=== PATIENT | female | born 1955 | race African-American/Black ===

== ENCOUNTER 2017-04-26 14:06 | Inpatient (IN) | payer MEDICARE, OTHER ==
[~2017-04-26] VITALS: Ht 167.6 cm; Wt 111.0 kg
[2017-04-26 15:22] LABS: Basophils # (auto) 0.1 uL; Eosinophils # (auto) 0.1 uL; Mean Corpuscular Volume 83.2 fL (80.0-100.0); Monocytes # (auto) 0.7 uL
[2017-04-26 15:24] LABS: Basophils % (auto) 0.9 % (0.0-2.0); Eosinophils % (auto) 0.7 % (0.0-7.0); Lymphocytes # (auto) 2.7 uL; Lymphocytes % (auto) 30.5 % (10.0-50.0); Mean Corpuscular Hemoglobin 26.9 pg (28.0-32.0); Mean Corpuscular Hgb Conc. 32.3 g/dL (32.0-36.0); Mean Platelet Volume 8.4 fL (6.9-10.8); Monocytes % (auto) 7.4 % (0.0-12.0); Neutrophils # (auto) 5.4 uL; Neutrophils % (auto) 60.5 % (37.0-80.0); Nucleated Red Blood Cells % 0.1 %; Platelet Count (auto) 241 10^3/uL (140-450); Red Cell Distribution Width 16.2 % (11.8-14.3); White Blood Cell 8.8 10^3/uL (4.4-10.8)
[2017-04-26 17:27] LABS: BUN/Creatinine Ratio 24.2; Calcium 8.3 mg/dL (8.5-10.1); Magnesium 1.8 mg/dL (1.6-2.6)
[2017-04-26 17:32] LABS: Bilirubin, Total 0.1 mg/dL (0.2-1.0); Total Protein 6.8 g/dL (6.4-8.2)
[2017-04-26 17:45] LABS: INR 0.97 (0.9-1.15); Partial Thromboplastin Time 24.8 sec (22.64-33.71); Prothrombin Time 10.6 sec (9.37-12.3)
[2017-04-26 17:48] LABS: Temperature: 21.3 C (20.0-25.0)
[2017-04-26] MEDS ORDERED: MORPHINE SULF INJ 2 MG/ML SYRINGE 1ML IV PRN (20:45)
[2017-04-26] MEDS ORDERED: NITROGLYCERIN 0.4 MG SL TAB SL PRN (20:45)
[2017-04-26] MEDS ORDERED: ENOXAPARIN SOD 100 MG/1 ML SYRINGE SC ONE (21:15)
[2017-04-26] MEDS: METOPROLOL TARTRATE 25 MG TAB PO SCH (21:22)
[2017-04-26] MEDS: ATORVASTATIN 20 MG TAB PO SCH (21:22)
[2017-04-26 21:29] LABS: Cholesterol 154 mg/dL (< 200); HDL Cholesterol 58 mg/dL (40-59); LDL Cholesterol 78 mg/dL (< 100); Triglycerides 242 mg/dL (< 150)
[2017-04-26] MEDS ORDERED: DEXTROSE (50%) 50ML SYRG IV PRN (22:15)
[2017-04-26] MEDS ORDERED: AML5T PO (23:44)
[2017-04-26] MEDS ORDERED: GLIP-115 PO (23:44)
[2017-04-26] MEDS ORDERED: METF-370 PO (23:44)
[2017-04-26] MEDS ORDERED: MAGN400T5 PO (23:44)
[2017-04-26] MEDS ORDERED: LOSA25TA8 PO (23:44)
[2017-04-27 04:58] VITALS: BP 140/70
[2017-04-27 05:42] LABS: Basophils # (auto) 0.1 uL; Eosinophils # (auto) 0.2 uL; Hemoglobin 11.1 g/dL (12.2-16.2); Lymphocytes # (auto) 3.3 uL; Monocytes # (auto) 0.6 uL
[2017-04-27 05:48] LABS: Basophils % (auto) 0.6 % (0.0-2.0); Eosinophils % (auto) 2.3 % (0.0-7.0); Lymphocytes % (auto) 40.2 % (10.0-50.0); Mean Corpuscular Hemoglobin 27.1 pg (28.0-32.0); Mean Corpuscular Hgb Conc. 32.8 g/dL (32.0-36.0); Mean Corpuscular Volume 82.6 fL (80.0-100.0); Mean Platelet Volume 8.5 fL (6.9-10.8); Monocytes % (auto) 7.8 % (0.0-12.0); Neutrophils % (auto) 49.1 % (37.0-80.0); Nucleated Red Blood Cells % 0.2 %; Platelet Count (auto) 223 10^3/uL (140-450); Red Cell Distribution Width 15.9 % (11.8-14.3); White Blood Cell 8.2 10^3/uL (4.4-10.8)
[2017-04-27 05:56] LABS: BUN/Creatinine Ratio 27.6; Calcium 8.4 mg/dL (8.5-10.1); Potassium 3.4 mmol/L (3.5-5.1)
[2017-04-27] MEDS: ACCU-CHEK COMFORT CURVE STRIP VI SCH ×4 (06:19→22:11)
[2017-04-27] MEDS: InsuLIN REG 1unit/0.01ml Soln (100units/ml) SC SCH ×4 (06:22→22:14)
[2017-04-27] MEDS: glipiZIDE 5 MG TAB PO SCH (06:22)
[2017-04-27 07:10] LABS: Urine Bilirubin Negative (Negative); Urine Blood Negative /uL (Negative); Urine Color Yellow (Yellow); Urine Glucose 4+ mg/dL (Normal); Urine Ketone Negative (Negative); Urine Nitrite Negative (Negative); Urine RBC <1 /hpf (0 - 4); Urine Urobilinogen Normal (Negative)
[2017-04-27 09:00] VITALS: BP 144/84
[2017-04-27] MEDS: ASPirin 81 mg TAB PO SCH (10:00)
[2017-04-27] MEDS ORDERED: LIDOCAINE 2%HCL (LOCAL ANESTH.) INJ 20ML MDV ONE (10:31)
[2017-04-27] MEDS ORDERED: IODIXANOL 320MG/ML 100ML BTL IV ONE (10:33)
[2017-04-27] MEDS ORDERED: MIDAZOLAM HCL 1MG/1ML-2 ML VIAL ONE (12:50)
[2017-04-27] MEDS ORDERED: fentaNYL CITRATE 100 MCG/2 ML VL ONE (12:50)
[2017-04-27] MEDS ORDERED: ANGIOMAX 250 MG VIAL IV ONE (12:50)
[2017-04-27] MEDS ORDERED: SODIUM CHL 0.9% 0 ML ONE (12:50)
[2017-04-27 13:00] VITALS: BP 157/97
[2017-04-27] MEDS ORDERED: hydrALAZINE HCL 20 MG/ML VL ONE (13:17)
[2017-04-27] MEDS ORDERED: SODIUM CHLORIDE 0.9% 1,000 ML IV SCH (13:50)
[2017-04-27] MEDS ORDERED: ALBUTEROL SULF 2.5 MG/0.5ML(0.5%) NEB SOLN NEB PRN (14:45)
[2017-04-27] MEDS ORDERED: IPRATROPIUM BROM 0.5 MG/2.5ML INH SOL NEB ONE (14:45)
[2017-04-27] MEDS ORDERED: amLODIPine BESYLATE 5 MG TAB PO ONE (14:45)
[2017-04-27] MEDS ORDERED: ALBUTEROL SULF 2.5 MG/0.5ML(0.5%) NEB SOLN NEB ONE (14:45)
[2017-04-27] MEDS: METOPROLOL TARTRATE 25 MG TAB PO SCH ×2 (15:43→22:11)
[2017-04-27 17:00] VITALS: BP 122/67
[2017-04-27 21:00] VITALS: BP 146/73
[2017-04-27] MEDS: ATORVASTATIN 20 MG TAB PO SCH (22:10)
[2017-04-28] MEDS: IPRATROPIUM BROM 0.5 MG/2.5ML INH SOL NEB SCH ×3 (00:16→11:22)
[2017-04-28] MEDS: PANTOPRAZOLE 40 MG/10 ML VIAL IV ONE ×2 (04:27→04:33)
[2017-04-28 05:00] VITALS: BP 146/87
[2017-04-28] MEDS: ACCU-CHEK COMFORT CURVE STRIP VI SCH ×2 (06:14→11:57)
[2017-04-28] MEDS: InsuLIN REG 1unit/0.01ml Soln (100units/ml) SC SCH ×2 (06:18→11:57)
[2017-04-28] MEDS: glipiZIDE 5 MG TAB PO SCH (06:18)
[2017-04-28 07:59] VITALS: BP 141/77
[2017-04-28] MEDS ORDERED: amLODIPine BESYLATE 5 MG TAB PO SCH (10:00)
[2017-04-28] MEDS: ASPirin 81 mg TAB PO SCH (10:58)
[2017-04-28] MEDS: METOPROLOL TARTRATE 25 MG TAB PO SCH (10:58)
[2017-04-28 11:37] VITALS: BP 140/73
[2017-04-28 15:56] VITALS: BP 140/73
[2017-04-28 16:05] VITALS: BP 140/73
[2017-04-28 16:39] VITALS: BP 141/68
[2017-04-29] MEDS ORDERED: PANTOPRAZOLE 40 MG TAB PO SCH (10:00)
== END 2017-04-28 17:45 | disposition home or self-care (01) | DRG 281 ==
LOC: ER 14:06 → EDBD 14:06 → TELE 14:07 → TELE-CENTR 22:50
PROVIDERS: ADMIT Nurse Practitioner Family; ATTEND Internal Medicine Pulmonary Disease
PROC: 4A023N7 Measurement of Cardiac Sampling and Pressure, Left Heart, Percutaneous Approach (ICD-10-PCS; principal; 2017-04-27)
PROC: B2111ZZ Fluoroscopy of Multiple Coronary Arteries using Low Osmolar Contrast (ICD-10-PCS; 2017-04-27)
DX: I21.4 Non-ST elevation (NSTEMI) myocardial infarction (principal); I13.0 Hypertensive heart and chronic kidney disease with heart failure and stage 1 through stage 4 chronic kidney disease, or unspecified chronic kidney disease; E11.22 Type 2 diabetes mellitus with diabetic chronic kidney disease; E11.65 Type 2 diabetes mellitus with hyperglycemia; E44.0 Moderate protein-calorie malnutrition; I50.42 Chronic combined systolic (congestive) and diastolic (congestive) heart failure; N18.3 Chronic kidney disease, stage 3 (moderate); D64.9 Anemia, unspecified; E66.01 Morbid (severe) obesity due to excess calories; I25.10 Atherosclerotic heart disease of native coronary artery without angina pectoris; Z79.82 Long term (current) use of aspirin; Z82.49 Family history of ischemic heart disease and other diseases of the circulatory system; Z83.3 Family history of diabetes mellitus; Z79.899 Other long term (current) drug therapy; Z68.39 Body mass index [BMI] 39.0-39.9, adult
CPT/HCPCS: 36415; 70450; 71010; 80048; 80053; 80061; 81001; 82962; 83036; 83735; 83880; 84443; 84484; 85025; 85379; 85610; 85730; 93005; 93458; 94640; 94761; 96372; 99152; C9113; J1815; J2250; Q9967

== ENCOUNTER 2017-06-10 16:13 | Emergency (ER) | payer OTHER ==
[~2017-06-10] VITALS: Ht 167.6 cm; Wt 107.5 kg
[~2017-06-10 16:13] MED LIST: AML5T PO; GLIP-115 PO; LOSA25TA8 PO; MAGN400T5 PO; METF-370 PO
[2017-06-10 16:41] VITALS: BP 134/65
[2017-06-10 17:14] LABS: Eosinophils # (auto) 0.2 uL; Eosinophils % (auto) 2.8 % (0.0-7.0); Mean Corpuscular Hgb Conc. 31.5 g/dL (32.0-36.0); Nucleated Red Blood Cells % 0.1 %; Platelet Count (auto) 266 10^3/uL (140-450); White Blood Cell 6.9 10^3/uL (4.4-10.8)
[2017-06-10 17:15] LABS: Basophils # (auto) 0.1 uL; Basophils % (auto) 1.1 % (0.0-2.0); Hemoglobin 12.3 g/dL (12.2-16.2); Lymphocytes # (auto) 2.6 uL; Lymphocytes % (auto) 37.5 % (10.0-50.0); Mean Corpuscular Hemoglobin 26.1 pg (28.0-32.0); Mean Corpuscular Volume 82.8 fL (80.0-100.0); Monocytes # (auto) 0.4 uL; Monocytes % (auto) 6.3 % (0.0-12.0); Neutrophils # (auto) 3.6 uL; Neutrophils % (auto) 52.3 % (37.0-80.0); Red Cell Distribution Width 15.7 % (11.8-14.3)
[2017-06-10 17:38] LABS: Albumin 3.8 g/dL (3.4-5.0); Bilirubin, Total 0.2 mg/dL (0.2-1.0); Calcium 9.2 mg/dL (8.5-10.1); Potassium 3.9 mmol/L (3.5-5.1)
== END 2017-06-10 21:00 | disposition left against medical advice (07) ==
LOC: ER 16:19
DX: R07.89 Other chest pain (principal); Z53.21 Procedure and treatment not carried out due to patient leaving prior to being seen by health care provider
CPT/HCPCS: 36415; 80053; 84484; 85025; 93005